=== PATIENT | male | born 1985 | race Caucasian/White ===

== ENCOUNTER 2017-04-14 19:25 | Emergency (ER) | payer SELFPAY ==
[~2017-04-14] VITALS: Ht 177.8 cm; Wt 104.5 kg
[~2017-04-14 19:25] MED LIST: ETOMIDATE 2MG/ML 10ML VIAL IV ONE; VECURONIUM BROMIDE 10 MG/VIAL IV ONE
[2017-04-14 19:37] VITALS: BP 154/72
[2017-04-14] MEDS ORDERED: SODIUM CHLORIDE 0.9% 1,000 ML IV ONE ×2 (19:45)
[2017-04-14] MEDS ORDERED: PROPOFOL 10MG/ML 100ML 100 ML IV ONE (20:08)
[2017-04-14] MEDS ORDERED: PROPOFOL 10MG/ML 100ML 100 ML IV SCH (20:15)
== END 2017-04-14 20:20 | disposition short-term general hospital (02) ==
LOC: ER 19:35
DX: S31.113A Laceration without foreign body of abdominal wall, right lower quadrant without penetration into peritoneal cavity, initial encounter (principal); J96.00 Acute respiratory failure, unspecified whether with hypoxia or hypercapnia; X58.XXXA Exposure to other specified factors, initial encounter; Y93.89 Activity, other specified; Y92.89 Other specified places as the place of occurrence of the external cause; Y99.8 Other external cause status
CPT/HCPCS: 31500; 32551; 36415; 71010; 86850; 86900; 86901; 86920; 96360; 99291; J2704; J3490; P9016; Z7610; 94002; J7030